=== PATIENT | female | born 1960 | race Caucasian/White ===

== ENCOUNTER 2017-03-11 16:12 | Emergency (ER) | payer MEDICAID ==
[~2017-03-11] VITALS: Wt 86.2 kg
[2017-03-11] MEDS ORDERED: ALDACTONE25 MG PO (16:17)
[2017-03-11] MEDS ORDERED: LEVOTHYROXIN0.025 M1 PO (16:18)
[2017-03-11] MEDS ORDERED: LOSARTAN POTASS50 M1 PO (16:18)
[2017-03-11] MEDS ORDERED: FUROSEMIDE40 MG PO (16:18)
[2017-03-11] MEDS ORDERED: LASIX40 MG PO (16:26)
[2017-03-11] MEDS ORDERED: LEVOTHYROXIN0.025 MG PO (16:26)
[2017-03-11] MEDS ORDERED: ALDACTONE25 M1 PO (16:26)
== END 2017-03-11 16:33 | disposition home or self-care (01) ==
LOC: ED 16:12
DX: Z76.0 Encounter for issue of repeat prescription (principal); R03.0 Elevated blood-pressure reading, without diagnosis of hypertension; F17.200 Nicotine dependence, unspecified, uncomplicated; Z79.899 Other long term (current) drug therapy

== ENCOUNTER → 2017-05-27 | Outpatient (CLI) | payer MEDICAID ==
[~2017-05-27] MED LIST: ALDACTONE25 M1 PO; ALDACTONE25 MG PO; FUROSEMIDE40 MG PO; LASIX40 MG PO; LEVOTHYROXIN0.025 M1 PO; LEVOTHYROXIN0.025 MG PO; LOSARTAN POTASS50 M1 PO
[2017-05-27 18:13] LABS: BASO # 0.1 10*3/uL (0.0-0.1); BASO % 0.6 % (0.0-1.0); EOS # 0.3 10*3/uL (0.0-0.4); EOS % 3.1 % (1.0-4.0); HEMATOCRIT 44.9 % (37.0-47.0); HEMOGLOBIN 14.7 g/dl (12.0-16.0); LYMPH # 3.8 10*3/uL (1.3-4.4); LYMPH % 34.4 % (27.0-41.0); MEAN CELL VOLUME 89.3 fl (81.0-99.0); MEAN CORPUSCULAR HGB 29.2 pg (27.0-31.0); MEAN CORPUSCULAR HGB CONC 32.7 g/dl (33.0-37.0); MEAN PLATELET VOLUME 11.8 fl (9.6-12.3); MONO # 0.8 10*3/uL (0.1-1.0); MONO % 7.6 % (3.0-9.0); NEUT # 5.9 10*3/uL (2.3-7.9); NEUT % 53.9 % (47.0-73.0); PLATELET COUNT AUTOMATED 191 10*3/uL (130-400); RED BLOOD COUNT 5.03 10*6/uL (4.10-5.10); WHITE BLOOD COUNT 10.9 10*3/uL (4.8-10.8)
[2017-05-27 18:31] LABS: ALBUMIN 3.3 gm/dl (3.1-4.5); ALKALINE PHOSPHATASE 96 U/L (45-117); BILIRUBIN, TOTAL 0.2 mg/dl (0.2-1.0); BUN 28 mg/dl (7-24); CARBON DIOXIDE 24 mmol/L (21-32); CHLORIDE 107 mmol/L (98-107); EST GLOM FILT AFRICAN AMERICAN > 60 ml/min; GLUCOSE 102 mg/dL (65-99); POTASSIUM 3.8 mmol/L (3.5-5.1); SGOT/AST 29 IU/L (3-35); SGPT/ALT 56 U/L (12-78); SODIUM 137 mmol/L (136-145); TOTAL PROTEIN 7.4 gm/dL (6.4-8.2)
== END | disposition home or self-care (01) ==
LOC: LAB 17:53
PROVIDERS: Family Medicine
DX: R07.9 Chest pain, unspecified (principal); I10 Essential (primary) hypertension; Z87.891 Personal history of nicotine dependence